=== PATIENT | female | born 1955 | race Caucasian/White ===

== ENCOUNTER 2016-09-06 12:39 | Emergency (ER) | payer MEDICAID ==
[~2016-09-06] VITALS: Ht 152.4 cm; Wt 78.0 kg
[~2016-09-06 12:39] MED LIST: AEROCHAMBER1 DEV IH; ALBUTEROL2 PUFFS/17 IN; AMOXICILLIN 50500 MG PO; AMOXIL500 MG PO; AMOXIL875 MG PO; ANTIVERT GENERI25 MG PO; ASPIRIN EC325 MG PO; ASPIRIN325 M1 PO; ATORVASTATIN CA20 M1 PO; AUGMENTIN 875 M1 TAB PO; CEPHALEXIN500 M1 PO; CIPRO 500MG TA500 MG PO; CORTISPORIN (GE10 M1 OT; DARVOCET-N 1001 EACH PO; EC NAPROSYN500 MG PO; FLEXERIL10 MG PO; GLYBURIDE 5MG TA5 MG PO; IBUPROFEN400 MG PO; KEFLEX 500MG.500 MG PO; LORTAB 5/500 501 TAB PO; MECLIZINE 25MG25 MG PO; MEDROL 4MG. DOSE4 MG PO; METFORMIN HYD1000 MG PO; MOTRIN600 M1 PO; NAPROSYN 500MG500 MG PO; NITROQUICK0.4 MG SL; PERCOCET 5/3251 EACH PO; PREDNISONE 20MG20 MG PO; SULFACETAMIDE S15 M1 OP; ZITHROMAX Z PA250 MG PO; ZOFRAN4 MG PO
[2016-09-06 12:55] LABS: HEMOGLOBIN 13.6 g/dL (12.2-16.2); LYMPH # 3.2 K/mm3 (0.7-4.5); LYMPH % 27.7 % (10-50.0)
[2016-09-06 13:20] LABS: BUN 15 mg/dL (7-18)
[2016-09-06 13:23] LABS: GFR (ESTIMATED) 85 ML/MIN (59-)
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
--- NOTE | 2016-09-06 13:44 | Emergency Room Report ---
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 N Clinical Suspician of Infection? N Mental Status: 1 - Regular (Normal Baseline) Sepsis Risk:Low Sepsis Risk Have you (or family members/close friends) recently traveled outside the [place]? N If Yes, where/when: Have you had exposure to infectious disease within the past month? TB? Other? Specify: Source patient, RN notes reviewed, RN/MD Exam Limitations no limitations Comment Patient is here with precordial chest pain, described as squeezing, nonradiating , without any shortness of breath, for the past 3 days, off and on. Patient reports that she had similar symptoms approximately 5 years ago and she underwent a stress test, which is normal. She believes her sugar may be arriving to [facility]. ALLERGIES Coded Allergies: No Known Allergies (09/06/16) Home Medications Active Scripts ONDANSETRON HCL (Zofran 4MG Tab) 4 MG PO Q6HP PRN NAUSEA AND VOMITING #10 TAB Prov: 05/25/14 Prednisone (Prednisone 20MG) 20 MG PO BID #6 TAB Prov: 07/27/16 Reported Medications ASPIRIN (Aspirin EC) 325 MG PO QHS NAPROXEN (NAPROSYN 500MG TAB) 500 MG PO BID #60 Cephalexin Monohydrate (Cephalexin 500 MG Tablet) 500 MG PO Q8H #30 METFORMIN HCL (Metformin Hydrochloride) 1,000 MG PO DAILY #60 Atorvastatin Calcium 20 MG PO DAILY #30 History Medical History General CAD? No Angina: Yes MA: No Hypertension? Yes Hyperlipidemia? Yes CHF? No COPD? No Asthma? No Anemia? No Hernia? No Thyroid Problems? No Hypothyroidism? No CVA? No Seizures? No Diabetes? Yes Insulin Dependent: No Insulin Pump: No Home FSBS? Yes End Stage Renal Disease? No UTI? No Stones? No GB Disease: No Nephritic Syndrome? No Asplenia? No Hepatitis? No Sickle Cell Disease? No Arthritis? Yes Cataracts? No Glaucoma? No MRSA? No TB? No Cancer? No Immunization Hx Ped.Immunizations UTD Yes DT/Tetanus 1-4 YRS Flu NEVER Pneumonia NEVER Surgical Hx Previous Surgery?Y BREAST BX Tubal Ligation Appendix KIKO Family History Family Hx Diabetes Yes CAD Yes Hypertension Yes Hyperlipidemia No Cancer Yes TB No Social History Smoking Hx Smoker: Never Smoker Tobacco: No Type N/A Are you/the child exposed to second-hand smoke: No Alcohol Alcohol: No Review of Systems All Other Systems Reviewed and Negative Cardiovascular chest pain Physical Exam Vital Signs Vital Signs Date Time Temp Pulse Resp B/P Pulse O2 O2 Flow FiO2 Ox Delivery Rate 09/06 1349 97.7 81 18 123/77 94 09/06 1240 97.7 81 18 123/ 94 General Appearance normal appearance, WD/WN, no apparent distress Respiratory Status Yes: trachea midline, chest symmetrical, non tender chest. No: respiratory distress. Lung Sounds bilateral: normal breath sounds, lungs clear. 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 No Comment Upon reevaluation patient appears medically stable, clinically improving. Patient advised of results obtained as well as need for her to follow-up with local fur blender, Dr. Kiko Dang, within the next 2 days. Results/Orders Laboratory Tests 09/06/16 1250: Sodium 141, Potassium 4.0, Chloride 104, Carbon Dioxide 27, BUN 15, Creatinine 0.7, Estimated Creat Clear 103, Estimated GFR (MDRD) 85, Glucose 141 H, Calcium 9.3, Total Bilirubin 0.5, AST 17, ALT 26, Alkaline Phosphatase 98, Creatine Kinase 133, CK-MB (CK-2) Rel Index 0.4, CK and CKMB Interp < 0.5, Troponin I < 0.02, Total Protein 8.0, Albumin 4.1, Globulin 3.9 H, Albumin/Globulin Ratio 1.1, WBC 11.5 H, RBC 4.80, Hgb 13.6, Hct 42.0, MCV 87.5, RDW 13.2, Plt Count 311, MPV 6.9 L, Gran % 65.7, Gran # 7.6, Lymphocytes % 27.7, Monocytes % 4.4, Eosinophils % 1.6, Basophils % 0.6, Lymphocytes # 3.2, Monocytes # 0.5, Eosinophils # 0.2, Basophils # 0.1, PUBS MCHC 32.5, MCH 28.4 Current Medication Orders Sig/Jannet Start time Last Medication Dose Route Stop Time Status Admin Aspirin 324 MG ONCE ONE 09/06 1300 DC 09/06 PO 09/06 1301 1259 Aspirin 0 .STK-MED ONE 09/06 1254 DC .ROUTE Sodium Chloride 10 ML PRN PRN 09/06 1245 DCD IV 09/07 1244 Orders Procedure Date/time Status ELECTROCARDIOGRAM REQUEST 09/06 1244 Active IV SALINE LOCK 09/06 1244 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 of ischemic chgs, no ectopy, normal QRS, normal TN, normal EKG, no EKG for comparison, non-spec. ST/Twave chgs, ST elevation, ST depression, LBBB, RBBB, ectopy, abnormal Q waves XRAY/CT/US XRAY/CT/US XRAY chest XR interpretation by discussed w/radiologist Xray Results no infiltrates, normal heart size, normal lung inflation lucie Departure Departure Time of Disposition 1342 Disposition DC Home or Self Care(routine) Clinical Impression Primary Impression: Chest pain Qualifiers: Chest pain type: unspecified Qualified Code: R07.9 - Chest pain, unspecified Condition STABLE Referrals Kiko Dang MD: Today after leaving ER Patient Instructions DI for Chest Pain Additional Instructions Please follow-up with Dr. Kiko Dang tomorrow, for additional outpatient workup. Discharge Counseling Counseled pt/family regarding diagnosis, test results, medications/RX, home care, follow up needs Comment Please follow-up with Dr. Kiko Dang tomorrow, for additional outpatient workup. Prescriptions Current Visit Scripts CIPROFLOXACIN HCL/DEXAMETH (Ciprodex Otic Suspension) 4 DROP OT BID #1 BOT Ref 2 ED Critical Care Critical Care No at 2678
--- NOTE | 2016-09-06 13:44 | Emergency Room Report ---
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 N Clinical Suspician of Infection? N Mental Status: 1 - Regular (Normal Baseline) Sepsis Risk:Low Sepsis Risk Have you (or family members/close friends) recently traveled outside the [place]? N If Yes, where/when: Have you had exposure to infectious disease within the past month? TB? Other? Specify: Source patient, RN notes reviewed, RN/MD Exam Limitations no limitations Comment Patient is here with precordial chest pain, described as squeezing, nonradiating , without any shortness of breath, for the past 3 days, off and on. Patient reports that she had similar symptoms approximately 5 years ago and she underwent a stress test, which is normal. She believes her sugar may be arriving to [facility]. ALLERGIES Coded Allergies: No Known Allergies (09/06/16) Home Medications Active Scripts ONDANSETRON HCL (Zofran 4MG Tab) 4 MG PO Q6HP PRN NAUSEA AND VOMITING #10 TAB Prov: 05/25/14 Prednisone (Prednisone 20MG) 20 MG PO BID #6 TAB Prov: 07/27/16 Reported Medications ASPIRIN (Aspirin EC) 325 MG PO QHS NAPROXEN (NAPROSYN 500MG TAB) 500 MG PO BID #60 Cephalexin Monohydrate (Cephalexin 500 MG Tablet) 500 MG PO Q8H #30 METFORMIN HCL (Metformin Hydrochloride) 1,000 MG PO DAILY #60 Atorvastatin Calcium 20 MG PO DAILY #30 History Medical History General CAD? No Angina: Yes IN: No Hypertension? Yes Hyperlipidemia? Yes CHF? No COPD? No Asthma? No Anemia? No Hernia? No Thyroid Problems? No Hypothyroidism? No CVA? No Seizures? No Diabetes? Yes Insulin Dependent: No Insulin Pump: No Home FSBS? Yes End Stage Renal Disease? No UTI? No Stones? No GB Disease: No Nephritic Syndrome? No Asplenia? No Hepatitis? No Sickle Cell Disease? No Arthritis? Yes Cataracts? No Glaucoma? No MRSA? No TB? No Cancer? No Immunization Hx Ped.Immunizations UTD Yes DT/Tetanus 1-4 YRS Flu NEVER Pneumonia NEVER Surgical Hx Previous Surgery?Y BREAST BX Tubal Ligation Appendix KIKO Family History Family Hx Diabetes Yes CAD Yes Hypertension Yes Hyperlipidemia No Cancer Yes TB No Social History Smoking Hx Smoker: Never Smoker Tobacco: No Type N/A Are you/the child exposed to second-hand smoke: No Alcohol Alcohol: No Review of Systems All Other Systems Reviewed and Negative Cardiovascular chest pain Physical Exam Vital Signs Vital Signs Date Time Temp Pulse Resp B/P Pulse O2 O2 Flow FiO2 Ox Delivery Rate 09/06 1349 97.7 81 18 123/77 94 09/06 1240 97.7 81 18 123/ 94 General Appearance normal appearance, WD/WN, no apparent distress Respiratory Status Yes: trachea midline, chest symmetrical, non tender chest. No: respiratory distress. Lung Sounds bilateral: normal breath sounds, lungs clear. 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 No Comment Upon reevaluation patient appears medically stable, clinically improving. Patient advised of results obtained as well as need for her to follow-up with local real estate underwriter, Dr. Kiko Dang, within the next 2 days. Results/Orders Laboratory Tests 09/06/16 1250: Sodium 141, Potassium 4.0, Chloride 104, Carbon Dioxide 27, BUN 15, Creatinine 0.7, Estimated Creat Clear 103, Estimated GFR (MDRD) 85, Glucose 141 H, Calcium 9.3, Total Bilirubin 0.5, AST 17, ALT 26, Alkaline Phosphatase 98, Creatine Kinase 133, CK-MB (CK-2) Rel Index 0.4, CK and CKMB Interp < 0.5, Troponin I < 0.02, Total Protein 8.0, Albumin 4.1, Globulin 3.9 H, Albumin/Globulin Ratio 1.1, WBC 11.5 H, RBC 4.80, Hgb 13.6, Hct 42.0, MCV 87.5, RDW 13.2, Plt Count 311, MPV 6.9 L, Gran % 65.7, Gran # 7.6, Lymphocytes % 27.7, Monocytes % 4.4, Eosinophils % 1.6, Basophils % 0.6, Lymphocytes # 3.2, Monocytes # 0.5, Eosinophils # 0.2, Basophils # 0.1, PUBS MCHC 32.5, MCH 28.4 Current Medication Orders Sig/Jannet Start time Last Medication Dose Route Stop Time Status Admin Aspirin 324 MG ONCE ONE 09/06 1300 DC 09/06 PO 09/06 1301 1259 Aspirin 0 .STK-MED ONE 09/06 1254 DC .ROUTE Sodium Chloride 10 ML PRN PRN 09/06 1245 DCD IV 09/07 1244 Orders Procedure Date/time Status ELECTROCARDIOGRAM REQUEST 09/06 1244 Active IV SALINE LOCK 09/06 1244 Active 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 of ischemic chgs, no ectopy, normal QRS, normal NE, normal EKG, no EKG for comparison, non-spec. ST/Twave chgs, ST elevation, ST depression, LBBB, RBBB, ectopy, abnormal Q waves XRAY/CT/US XRAY/CT/US XRAY chest XR interpretation by discussed w/radiologist Xray Results no infiltrates, normal heart size, normal lung inflation lucie Departure Departure Time of Disposition 1342 Disposition DC Home or Self Care(routine) Clinical Impression Primary Impression: Chest pain Qualifiers: Chest pain type: unspecified Qualified Code: R07.9 - Chest pain, unspecified Condition STABLE Referrals Kiko Dang MD: Today after leaving ER Patient Instructions DI for Chest Pain Additional Instructions Please follow-up with Dr. Kiko Dang tomorrow, for additional outpatient workup. Discharge Counseling Counseled pt/family regarding diagnosis, test results, medications/RX, home care, follow up needs Comment Please follow-up with Dr. Kiko Dang tomorrow, for additional outpatient workup. Prescriptions Current Visit Scripts CIPROFLOXACIN HCL/DEXAMETH (Ciprodex Otic Suspension) 4 DROP OT BID #1 BOT Ref 2 ED Critical Care Critical Care No at 9931
--- OUTSIDE RECORDS SUMMARY | 2016-09-06 13:46 | External Medical Summary Rpt ---
Demographics Preferred Language Mohawk Marital Status Unknown Advent Affiliation Unknown Race Unknown Ethnic Group Unknown Author Author , WALLACE GONSALEZ Address Unknown Phone Immunization Unable to retrieve immunization data due to connection failure with Immunization Registry. Please try again later.
--- OUTSIDE RECORDS SUMMARY | 2016-09-06 13:46 | External Medical Summary Rpt ---
Demographics Preferred Language Yoruba Marital Status Unknown Adventist Affiliation Unknown Race Unknown Ethnic Group Unknown Author Author , WALLACE GONSALEZ Address Unknown Phone Immunization Unable to retrieve immunization data due to connection failure with Immunization Registry. Please try again later.
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
--- OUTSIDE RECORDS SUMMARY | 2016-09-06 13:46 | External Medical Summary Rpt ---
Author Author WALLACE Palma, [employer] Address Unknown Phone Unavailable Results Glucose [Mass/volume] in Capillary blood by Glucometer Observa Value Referen Units Interpr Notes Date tion ce etation Range Glucose 70 - 110 mg/dl High No June 27 [Mass/vol informati 2017 8:16 ume] in on in AM Capillary source blood by data Glucomete r
[2016-09-06 13:49] VITALS: BP 123/77
[2016-09-06] MEDS ORDERED: CIPRODEX 0.3%-7.5 ML OT (13:53)
== END 2016-09-06 13:50 | disposition home or self-care (01) ==
LOC: ER 12:39
PROVIDERS: Emergency Medicine
DX: R07.2 Precordial pain (principal); R07.9 Chest pain, unspecified; I10 Essential (primary) hypertension; E78.5 Hyperlipidemia, unspecified; E11.9 Type 2 diabetes mellitus without complications